=== PATIENT | female | born 1945 | race Caucasian/White ===

== ENCOUNTER 2017-05-19 18:49 | Observation (INO) ==
--- NOTE | 2017-05-19 19:38 | Emergency Department Note ---
Disposition Clinical Impression: Chest pain Qualifiers: Chest pain type: unspecified Qualified Code(s): R07.9 - Chest pain, unspecified Disposition: Admitted As Inpatient Condition: Undetermined Referrals: Belinda Bey MD [Primary Care Provider] - Forms: ED Satisfaction Letter Time of Disposition: 20:36 Chest Pain HPI - General Chief Complaint: ED Chest Pain Stated Complaint: chest pain Time Seen by Provider: 05/19/17 18:57 Source: patient Mode of arrival: ambulatory Limitations: no limitations Vital Signs Reviewed: Yes Nursing Notes Reviewed: Yes - History of Present Illness HPI Narrative: 71-year-old female with history of [place] 4 stents arrive to [facility] emergency department complaining of left-sided chest discomfort was very sharp and stabbing in nature that radiated to her left upper extremity. The patient states this feels slightly different than her previous [place] but is very concerned. Patient denies any other complaints at this time. She felt like she had some shortness of breath and some nausea with it. She denies any other complaints other than a radiated to her left upper extremity and the left side of her neck. She is resting comfortably at this time but is still complaining of the left shoulder pain. The patient denies any unilateral leg swelling, history of DVT or PE, recent surgeries, recent immobilizations, hemoptysis. Pt complaint: chest pain Onset (ago): Just [employer] Duration: intermittent, now resolved Onset: during rest Pain Location: substernal, left chest Severity: moderate, severe Severity scale (1-10): 8 Quality: tightness, heaviness, sharp Pain Radiation: LUE, neck Improves with: nothing Worsens with: nothing Associated symptoms: Reports: nausea, dyspnea Treatments prior to arrival chest pain: none - Related Data On Oral Contraceptives: No Home Medications Medication Instructions Recorded Confirmed Aspirin [Lo-Dose Aspirin EC] 81 mg PO DAILY 02/05/16 02/05/16 Atorvastatin [Lipitor] 40 mg PO HS 02/05/16 02/05/16 Clopidogrel [Plavix] 75 mg PO DAILY 02/05/16 02/05/16 Insulin Glargine [Lantus] 60 unit SQ HS 02/05/16 02/05/16 Levothyroxine [Synthroid] 50 mcg PO 0630 02/05/16 02/05/16 Metoprolol XL (24 HR) Succ [Toprol 25 mg PO DAILY 02/05/16 02/05/16 Xl] Nitroglycerin [Nitrostat] 0.4 mg SL Q5M PRN 02/05/16 02/05/16 hydroCHLOROthiazide 25 mg PO DAILY 02/05/16 02/05/16 [Hydrochlorothiazide] Humalog 09/23/16 Metformin 09/23/16 Previous Rx's Medication Instructions Recorded Acetaminophen [Tylenol] 325 mg PO Q6HR PRN #10 tablet 09/23/16 Benzonatate [Tessalon] 200 mg PO TID PRN #20 capsule 09/23/16 Fluticasone Propionate Nasal 2 spray NS DAILY #1 bottle 09/23/16 [Flonase] Allergies Allergy/AdvReac Type Severity Reaction Status Date / Time Amoxicillin [From Amoxil] Allergy Swelling Verified 03/23/15 13:17 of Lip/Tongue/Throat Penicillins Allergy Swelling Verified 09/23/16 13:33 of Lip/Tongue/Throat All systems ED: reviewed and negative except as stated. Constitutional: Denies: fever, chills, weakness Cardiovascular: Reports: chest pain. Denies: palpitations, dyspnea on exertion , edema, syncope Respiratory: Reports: dyspnea. Denies: cough, wheezes, hemoptysis Gastrointestinal: Reports: nausea. Denies: abdominal pain, vomiting Musculoskeletal: Denies: back pain Neurological: Denies: headache, weakness, numbness, confusion, abnormal gait, vertigo Chest Pain PMH - Past Medical History Medical history: Reports: diabetes, hyperlipidemia, hypertension, myocardial infarction Surgical history: Reports: non-contributory Psychiatric history: Reports: no psych history Prior Cardiac Testing/Procedures: Stenting (X4) [employer] MEMBER history: Reports: non-contributory - Social History Smoking Status: Never smoker Alcohol use: Reports: none Drug use: Reports: none Physical Exam - General Limitations: no limitations General appearance: alert, in no apparent distress - Head Head exam: atraumatic, normocephalic, normal inspection - Eye Eye exam: Present: normal appearance, PERRL, EOMI - ENT ENT exam: normal exam, normal oropharynx, mucous membranes moist - Neck Neck exam: Present: normal inspection, full ROM, trachea midline - Chest Chest inspection: Present: normal inspection, symmetric chest wall rise - Respiratory Respiratory exam: Present: normal lung sounds bilaterally - Cardiovascular Cardiovascular exam: Present: regular rate, normal rhythm, normal heart sounds - Abdominal Exam Abdominal exam: Present: soft, Non-Tender. Absent: tenderness, distention, guarding, rebound, rigidity - Extremities Exam Extremities exam: Present: normal inspection, full ROM. Absent: tenderness, pedal edema - Neurological Exam Neurological exam: Present: alert, oriented X3 Course Vital Signs Temperature 97.9 F 05/19/17 18:52 Pulse Rate 88 05/19/17 18:52 Respiratory Rate 18 05/19/17 18:52 Blood Pressure 227/109 05/19/17 18:52 O2 Sat by Pulse Oximetry 97 05/19/17 18:52 Temperature 97.9 F 05/19/17 18:52 Pulse Rate 101 05/19/17 20:29 Respiratory Rate 16 05/19/17 20:29 Blood Pressure 180/118 05/19/17 20:29 O2 Sat by Pulse Oximetry 94 05/19/17 20:29 Oxygen Delivery Oxygen Delivery Room Air Chest Pain - MDM Narrative Medical decision making narrative: Patient's workup here in the emergency department demonstrates no acute process. Given the patient's previous history of [place] and symptoms occurring just prior to arrival, we will admit the patient to the hospitalist, accepted by Dr. Chery. Patient resting comfortably at this time receiving nitroglycerin and systolic blood pressure dropping into the 170s. - Medical Records Medical records reviewed: Yes I reviewed the patient's medical records. - Lab Data Lab results reviewed: Yes I reviewed the patient's lab results. Result diagrams: 05/19/17 19:16 05/19/17 19:16 Lab Results 05/19/17 05/19/17 05/19/17 Range/Units 19:16 19:16 19:16 WBC 7.9 (4.3-11.1) K/mcL RBC 4.88 (3.82-4.97) M/mcL Hgb 13.8 (11.5-15.4) g/dL Hct 42.9 (35.3-44.9) % MCV 87.9 (83.0-100.0) fL MCH 28.3 (28.0-33.3) pg MCHC 32.2 (31.6-35.5) g/dL RDW 13.5 (11.5-14.5) % Plt Count 236 (140-400) K/mcL MPV 11.4 (9.4-12.4) fL Immature Gran % 0.3 (0-4) % Seg Neutrophils % 64.1 % Lymphocytes % 23.1 % Monocytes % 8.8 % Eosinophils % 3.2 % Basophils % 0.5 % Neutrophils # 5.1 (1.6-8.9) K/mcL Lymphocytes # 1.8 (0.6-4.6) K/mcL Monocytes # 0.7 (0.0-1.3) K/mcL Eosinophils # 0.3 (0.0-0.6) K/mcL Basophils # 0.0 (0.0-0.2) K/mcL Sodium 141 (136-145) mEq/L Potassium 3.8 (3.5-4.5) mEq/L Chloride 104 (98-109) mEq/L Carbon Dioxide 25 (19-29) mEq/L BUN 26 H (7-20) mg/dL Creatinine 1.26 H (0.57-1.11) mg/dL Est GFR ( Amer) 50 L (> 60) Est GFR (Non-Af Amer) 42 L (> 60) BUN/Creatinine Ratio 21 (6-26) Glucose 114 H (70-99) mg/dL Calculated Osmolality 298 (280-300) Calcium 10.4 (8.6-10.8) mg/dL Troponin I 0.00 (0-0.03) ng/mL - Radiology Data Radiology results reviewed: Yes I reviewed the patient's radiology results. - EKG Data EKG attestation: Yes I reviewed and interpreted this EKG. EKG results narrative: Heart rate 84 bpm. NC interval 159 ms. QTC 377 ms. Normal sinus rhythm. No ST elevation or ST depression noted.
[2017-05-19] MEDS ORDERED: Aspirin 325 MG TABLET PO ONE (19:39)
[2017-05-19] MEDS ORDERED: Nitroglycerin 0.4 MG TAB.SUBL SL PRN (19:39)
[2017-05-19 19:49] LABS: Basophils % 0.5 %; Eosinophils # 0.3 K/mcL (0.0-0.6); Eosinophils % 3.2 %; Hematocrit 42.9 % (35.3-44.9); Hemoglobin 13.8 g/dL (11.5-15.4); Immature Granulocytes % 0.3 % (0-4); Lymphocytes # 1.8 K/mcL (0.6-4.6); Lymphocytes % 23.1 %; Mean Corpuscular HGB Conc 32.2 g/dL (31.6-35.5); Mean Corpuscular Hemoglobin 28.3 pg (28.0-33.3); Mean Corpuscular Volume 87.9 fL (83.0-100.0); Mean Platelet Volume 11.4 fL (9.4-12.4); Monocytes # 0.7 K/mcL (0.0-1.3); Monocytes % 8.8 %; Neutrophils # 5.1 K/mcL (1.6-8.9); Platelet Count 236 K/mcL (140-400); Red Blood Count 4.88 M/mcL (3.82-4.97); Red Cell Distribution Width 13.5 % (11.5-14.5); Segmented Neutrophils % 64.1 %
--- NOTE | 2017-05-19 19:52 | Emergency Department Note ---
START Narrative - START START: I examined this patient and my medical decision-making was reviewed with the Resident Physician. I agree with the documented findings, disposition and treatment plan as described except to the extent set forth below. 71 -year-old female with a history of 4 stents presents to the ER with left arm discomfort. She was not sure if it was her heart or not. She follows with cardiology here. She saw her net c developer 2 days ago who put her on a new blood pressure medication. She states she had her blood pressure checked tonight and it was elevated prior to coming to the ER. She has not had any heart catheterization in over 3 years since her last stent was placed. EKG was unremarkable.
[2017-05-19 20:01] LABS: Calcium 10.4 mg/dL (8.6-10.8); Potassium 3.8 mEq/L (3.5-4.5)
--- NOTE | 2017-05-19 21:40 | Internal Med History&Physical ---
Date of Encounter: 05/19/17 Time of Encounter: 21:38 Assessment and Plan (1) Hypertensive urgency Current visit: Yes Status: Acute *The patient for nitro drip since she still hypertensive. (2) Unstable angina Current visit: Yes Status: Acute Start the patient to nitro drip. continue aspirin Plavix beta leatha. Serial cardiac markers. Cardiology evaluation (3) Diabetes mellitus type 2 in obese Current visit: No Status: Acute Continue home regimen in addition to sliding scale insulin. Check hemoglobin A- 1 C in the morning Internal Medicine - H&P: HPI Chief complaint: chest pain History of present illness: Ms. Grimm is a 71 year old female who presents to the emergency room today with a main component of chest pain. By the patient was going to [employer] today and driving her car she started experiencing retrosternal and left in from memory chest pain. This pain lasted for a short period 2nd 2 minutes and resolve spontaneously. Patient did not have to pull off and continued driving. Patient had a 2nd similar episode of pain. Patient was found to be hypertensive and are able to emergency room with systolic blood pressure in the 180s. Patient was often during my interview. Patient has no history of coronary artery disease and had stents placed 3 1/2 years ago. Past Med Surg Social Fam HX - Past Medical History Medical history: diabetes, hyperlipidemia, hypertension, myocardial infarction Psychiatric history: no psych history - Past Surgical History Surgical History: non-contributory - Social History Smoking Status: Never smoker Smokeless Tobacco Status: No Alcohol use: none Drug use: none - Family History Mother Living Status: Hx Family Cardiac Disorders: Yes Hx Family Respiratory Disorders: No Hx Family Cancer: Yes Hx Family GI Disorders: No Hx Family Endocrine Disorder: Yes Hx Family Neuromuscular Disorders: No Hx Family Neurologic Disorders: No Hx Family HEENT Disorders: No Hx Family Autoimmune Disorders: No Father Living Status: Hx Family Cardiac Disorders: No Hx Family Respiratory Disorders: No Hx Family Cancer: No Hx Family GI Disorders: No Hx Family Endocrine Disorder: No Hx Family Neuromuscular Disorders: Yes Hx Family Neurologic Disorders: No Hx Family HEENT Disorders: No Hx Family Autoimmune Disorders: No Internal Medicine - H&P: Meds Aspirin [Lo-Dose Aspirin EC] 81 mg PO DAILY 02/05/16 [History] Atorvastatin [Lipitor] 40 mg PO HS 02/05/16 [History] Clopidogrel [Plavix] 75 mg PO DAILY 02/05/16 [History] Insulin Glargine [Lantus] 55 unit SQ HS 02/05/16 [History] Levothyroxine [Synthroid] 50 mcg PO 0630 02/05/16 [History] Metoprolol XL (24 HR) Succ [Toprol Xl] 25 mg PO DAILY 02/05/16 [History] hydroCHLOROthiazide [Hydrochlorothiazide] 25 mg PO DAILY 02/05/16 [History] Insulin NPH Hum/Reg Insulin Hm [Novolin 70-30 100 Unit/ml Vial] 15 unit SQ BID 09/23/16 [History] Metformin HCl [Glucophage Xr] 750 mg PO BID 09/23/16 [History] Amlodipine Besylate [Amlodipine Besylate] 2.5 mg PO DAILY 05/19/17 [History] Potassium Chloride [Klor-Con 10] 20 meq PO DAILY 05/19/17 [History] 3 Allergy/AdvReac Type Severity Reaction Status Date / Time Amoxicillin [From Amoxil] Allergy Swelling Verified 03/23/15 13:17 of Lip/Tongue/Throat Penicillins Allergy Swelling Verified 09/23/16 13:33 of Lip/Tongue/Throat All Systems PM: A 10-system review of systems was performed and is negative for pertinent findings except as documented above in the HPI. Review of systems: 10 point review of systems is negative except for HPI - Constitutional Vitals: Temp Pulse Resp BP Pulse Ox 98 F 101 16 172/88 94 05/19/17 20:55 05/19/17 20:29 05/19/17 20:55 05/19/17 20:55 05/19/17 20:29 Exam: Gen.: patient is alert oriented times 3 not in distress cardiac: Normal S1, S2, no additional sounds or murmurs chest: Clear to auscultation Abdomen: Soft, non tender. No rebound lower extremity Lax calf muscles no swelling Neuro: no focal deficits Internal Med - H&P Results - Labs CBC & Chem 7: 05/19/17 19:16 05/19/17 19:16
[2017-05-19] MEDS ORDERED: Nitroglycerin 25 MG/250 ML INFUS..BTL IVC SCH (21:45)
[2017-05-19] MEDS ORDERED: Dextrose Gel 15 GM PO PRN ×2 (21:52)
[2017-05-19] MEDS ORDERED: D5% in Water 1,000 ML IVC PRN (21:52)
[2017-05-19] MEDS ORDERED: *HR* Dextrose 50 % in Water (Syg) 50 ML SYRINGE IVP PRN (21:52)
[2017-05-20] MEDS: *HR* Heparin 5,000 UNIT/ML VIAL SQ SCH ×4 (00:36→22:10)
[2017-05-20 01:40] LABS: Basophils % 0.6 %; Eosinophils # 0.2 K/mcL (0.0-0.6); Eosinophils % 3.1 %; Hematocrit 38.5 % (35.3-44.9); Hemoglobin 12.5 g/dL (11.5-15.4); Immature Granulocytes % 0.3 % (0-4); Lymphocytes # 1.4 K/mcL (0.6-4.6); Lymphocytes % 20.4 %; Mean Corpuscular HGB Conc 32.5 g/dL (31.6-35.5); Mean Corpuscular Hemoglobin 28.7 pg (28.0-33.3); Mean Corpuscular Volume 88.5 fL (83.0-100.0); Mean Platelet Volume 11.5 fL (9.4-12.4); Monocytes # 0.7 K/mcL (0.0-1.3); Monocytes % 9.8 %; Neutrophils # 4.5 K/mcL (1.6-8.9); Platelet Count 205 K/mcL (140-400); Red Blood Count 4.35 M/mcL (3.82-4.97); Red Cell Distribution Width 13.4 % (11.5-14.5); Segmented Neutrophils % 65.8 %
[2017-05-20 01:53] LABS: Calcium 9.6 mg/dL (8.6-10.8); Magnesium 1.5 mg/dL (1.6-2.6); Potassium 3.7 mEq/L (3.5-4.5)
[2017-05-20] MEDS: Insulin LISPRO 300 UNITS/3 ML VIAL SQ SCH ×4 (01:56→17:25)
[2017-05-20] MEDS: Insulin DETEMIR 100 UNIT/ML X5UNITS SQ SCH ×2 (01:57→22:09)
[2017-05-20 01:58] LABS: Hemoglobin A1C 7.3 %
[2017-05-20] MEDS: Metoprolol XL (24 HR) Succ 25 MG TAB.ER.24H PO SCH (10:10)
[2017-05-20] MEDS: Aspirin Enteric Coated 81 MG Tablet PO SCH (10:11)
[2017-05-20] MEDS: hydroCHLOROthiazide 25 MG TABLET PO SCH (10:11)
--- NOTE | 2017-05-20 17:02 | Electrocardiograph Report ---
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
--- NOTE | 2017-05-20 18:46 | Internal Med Progress Note ---
Date of Encounter: 05/20/17 Time of Encounter: 10:30 - Assessment and plan (1) Chest pain Current Visit: Yes Status: Acute Assessment and plan: Patient presents with sudden onset left midsternal chest pain, she she describes a sharp, intermittent with radiation into her left shoulder blade, she also describes in her left arm felt heavy. The chest pain resolved prior to the back pain. Patient was found to be hypertensive on admission to the emergency department. Pain is not reproducible. Patient has been pain-free. Physical exam unremarkable. Prior history of coronary artery disease with 4 stents. We will continue the beta leatha, aspirin, Plavix. Patient was to have stress test this morning, however, she drank coffee and was unaware that she was supposed to be nothing by mouth. Stress test will start tomorrow. Echocardiogram ordered and pending, as well. Last echocardiogram was in 2014. Chest x-ray is negative for any acute process. EKG sinus rhythm with rate of 84 , OR interval 185, QRS 75, QTC 377. Continue associate vital signs Continue aspirin, statin, beta leatha, Plavix Stress test in the morning Consider cardiology consult based on results of stress test. Qualifiers: Chest pain type: unspecified Qualified Code(s): R07.9 - Chest pain, unspecified (2) CKD (chronic kidney disease) stage 3, GFR 30-59 ml/min Current Visit: Yes Status: Acute Assessment and plan: The patient states that she has been unaware of any renal disease. She states that she was having back pain and orthopedic physician discovered that she had an enlarged kidney. She states that her retroperitoneal ultrasound was ordered and she has never heard the results. The test was performed on 05/14/2017. There is no definite sonographic evidence of hydronephrosis, there is a slight increase in size of right parapelvic cyst, there are no suspicious features. There is normal bladder noted. Since GFR appears to have been decreased since May,. She has not had a normal reading since then. Patient will follow with primary care after discharge. Avoid nephrotoxins and NSAIDs. (3) HTN (hypertension) Current Visit: Yes Status: Chronic Assessment and plan: Blood pressures well controlled in inpatient setting. Continue home medications. Continue to monitor vital signs. Qualifiers: Hypertension type: essential hypertension Qualified Code(s): I10 - Essential (primary) hypertension (4) CAD (coronary artery disease) Current Visit: Yes Status: Chronic Assessment and plan: Prior history of coronary artery disease with stent placement. Continue telemetry and continue Lipitor, Plavix, beta leatha, aspirin. Qualifiers: Coronary Disease-Associated Artery/Lesion type: [place] artery [place] vs. transplanted heart: [place] heart Associated angina: without angina Qualified Code(s): I25.10 - Atherosclerotic heart disease of [place] coronary artery without angina pectoris (5) Diabetes mellitus type 2 in obese Current Visit: Yes Status: Acute (6) Hypertensive urgency Current Visit: Yes Status: Acute Assessment and plan: Continue to monitor. Blood pressure is well controlled at this time. - Time Spent With Patient less than 15 minutes - Subjective Interval history: Patient was seen and assessed at 10:30 AM. Patient reports sharp, left and midsternal chest pain, described as intermittent, onset while she was [place]. She reports that the pain radiated into her left shoulder blade and that her left arm felt heavy. Patient states that the chest pain resolved, however when she arrived at the emergency department, she states, "I still had misery in my back." Patient denies any chest or back pain at this time. She also reports no knowledge of having chronic kidney disease. She reports that she did have a retroperitoneal ultrasound here recently and is unsure of the results. - Constitutional Vitals: Temp Pulse Resp BP Pulse Ox 97.4 F L 83 16 178/81 94 05/20/17 18:34 05/20/17 18:34 05/20/17 18:34 05/20/17 18:34 05/20/17 18:34 General appearance: Present: cooperative, A&O X 3, pleasant, answers questions appropriately - Head Head exam: Present: atraumatic, normal inspection, normocephalic - Eye Eye exam: Present: normal appearance, conjuntiva pink, sclera anicteric - Neck Neck exam general surgery: Present: normal inspection, supple, trachea midline - Respiratory Respiratory exam: Present: CTAB. Absent: accessory muscle use, decreased breath sounds, rales, respiratory distress, rhonchi, wheezes - Cardiovascular Cardiovascular exam: Present: RRR, +S1, +S2. Absent: diastolic murmur, gallop, rubs, systolic murmur - GI/Abdominal GI/Abdominal exam: Present: normal bowel sounds, soft, no peritoneal signs. Absent: distended, hepatomegaly, tenderness - Extremities Exam Extremities exam: Present: normal inspection, warm, radial pulses palpable and symmetrical. Absent: calf tenderness, cyanotic, normal capillary refill, pedal edema, tenderness - Neurological Exam Neurological exam: Present: alert, oriented X3, no focal deficits. Absent: facial droop, speech deficit - Skin Skin exam: Present: dry, intact, normal color, warm. Absent: rash Internal Medicine: Result - Labs CBC & Chem 7: 05/20/17 01:21 05/20/17 01:21 Labs: Short CBC 05/20/17 Range/Units 01:21 WBC 6.9 (4.3-11.1) K/mcL Hgb 12.5 (11.5-15.4) g/dL Hct 38.5 (35.3-44.9) % Plt Count 205 (140-400) K/mcL Neutrophils # 4.5 (1.6-8.9) K/mcL BMP 05/20/17 01:21 Sodium 141 Potassium 3.7 Chloride 105 Carbon Dioxide 24 BUN 25 H Creatinine 1.31 H Glucose 168 H Calcium 9.6 Cardiac Enzymes 05/20/17 05/20/17 Range/Units 01:21 06:56 Troponin I 0.00 0.00 (0-0.03) ng/mL Consult Discharge Plan - Plan Referrals: Belinda Bey MD [Primary Care Provider] - 05/28/17 1:45 pm
[2017-05-20] MEDS ORDERED: 0.9 % Sodium Chloride 1,000 ML IVC SCH (19:00)
[2017-05-21] MEDS: Insulin LISPRO 300 UNITS/3 ML VIAL SQ SCH ×4 (01:17→15:23)
[2017-05-21] MEDS ORDERED: Regadenoson 0.4 MG/5 ML SYRINGE IVP ONE (05:58)
[2017-05-21] MEDS: *HR* Heparin 5,000 UNIT/ML VIAL SQ SCH ×2 (10:12→15:24)
[2017-05-21] MEDS: Aspirin Enteric Coated 81 MG Tablet PO SCH (10:19)
[2017-05-21] MEDS: hydroCHLOROthiazide 25 MG TABLET PO SCH (10:20)
[2017-05-21] MEDS: Metoprolol XL (24 HR) Succ 25 MG TAB.ER.24H PO SCH (10:20)
--- NOTE | 2017-05-21 14:16 | Discharge Summary ---
Date of Encounter: 05/21/17 Time of Encounter: 11:00 - Discharge Diagnosis (1) Chest pain Priority: Primary Status: Acute Comments: Patient presents with sudden onset left midsternal chest pain while she was driving to [employer]. She describes a sharp, intermittent with radiation into her left shoulder blade, she also describes in her left arm felt heavy. The chest pain resolved prior to the back pain. Patient was found to be hypertensive on admission to the emergency department. Pain is not reproducible. Patient has been pain-free. Physical exam unremarkable. Prior history of coronary artery disease with 4 stents. Patient was to have stress test mornin after admission, however, she drank coffee and was unaware that she was supposed to be nothing by mouth. Stress test completed and was negative, gated EF > 70%. Echocardiogram with an EF of 60-65%, mild LV DD, no significant valvular dysfunction. Chest x-ray is negative for any acute process. EKG sinus rhythm with rate of 84 , [place] interval 185, QRS 75, QTC 377. Unclear etiology of chest pain at this time. She denies any reflux symptoms, belching, nausea or vomiting. The chest pain is not reproducible. She has not had any chest pain at all since this episode. Continue aspirin, statin, beta leatha, Plavix, and follow-up with cardiology. Qualifiers: Chest pain type: unspecified Qualified Code(s): R07.9 - Chest pain, unspecified (2) CKD (chronic kidney disease) stage 3, GFR 30-59 ml/min Priority: Secondary Status: Acute Comments: The patient states that she has been unaware of any renal disease. She states that she was having back pain and orthopedic physician discovered that she had an enlarged kidney. She states that her retroperitoneal ultrasound was ordered and she has never heard the results. The test was performed on 05/14/2017. There is no definite sonographic evidence of hydronephrosis, there is a slight increase in size of right parapelvic cyst, there are no suspicious features. There is a normal bladder noted. GFR appears to have been decreased since May,. She has not had a normal reading since then. Patient will follow with primary care after discharge. Avoid nephrotoxins and NSAIDs. Serum creatinine and GFR appear to be at patient's baseline. She received IV fluids overnight and values improved. (3) HTN (hypertension) Priority: Secondary Status: Chronic Comments: Blood pressures have been about goal blood pressures. She reports that she was placed on amlodipine 2.5 mg by mouth daily by cardiology. She said she did not feel comfortable taking that since it was not prescribed by her primary care physician. She says that it made her feel a little bit lightheaded and she stopped taking it after one dose. Encouraged patient to restart it at home and discuss with primary care. We discussed the damaged to her kidneys from long- term hypertension. She was agreeable. She is not on Lasix or an TEO inhibitor. She will continue normal home medications, continue monitoring blood pressure at home, and discuss with primary care Qualifiers: Hypertension type: essential hypertension Qualified Code(s): I10 - Essential (primary) hypertension (4) CAD (coronary artery disease) Priority: Secondary Status: Chronic Comments: Patient has prior history of coronary artery disease with stent placement. Continue Lipitor, Plavix, beta leatha, and aspirin. Qualifiers: Coronary Disease-Associated Artery/Lesion type: [place] artery [place] vs. transplanted heart: [place] heart Associated angina: without angina Qualified Code(s): I25.10 - Atherosclerotic heart disease of [place] coronary artery without angina pectoris (5) Diabetes mellitus type 2 in obese Priority: Secondary Status: Chronic Comments: A1c 7.3. Continue home medications and Accu-Chek schedule per normal home regimen. (6) Hypertensive urgency Priority: Secondary Status: Acute Comments: Pressure has returned to baseline. Patient will continue her normal home medications. Plan as above - Discharge Medications Home Medications: Aspirin [Lo-Dose Aspirin EC] 81 mg PO DAILY 02/05/16 [History] Atorvastatin [Lipitor] 40 mg PO HS 02/05/16 [History] Clopidogrel [Plavix] 75 mg PO DAILY 02/05/16 [History] Insulin Glargine [Lantus] 55 unit SQ HS 02/05/16 [History] Levothyroxine [Synthroid] 50 mcg PO 0630 02/05/16 [History] Metoprolol XL (24 HR) Succ [Toprol Xl] 25 mg PO DAILY 02/05/16 [History] hydroCHLOROthiazide [Hydrochlorothiazide] 25 mg PO DAILY 02/05/16 [History] Insulin NPH Hum/Reg Insulin Hm [Novolin 70-30 100 Unit/ml Vial] 15 unit SQ BID 09/23/16 [History] Metformin HCl [Glucophage Xr] 750 mg PO BID 09/23/16 [History] Amlodipine Besylate 2.5 mg PO DAILY 05/19/17 [History] Potassium Chloride [Klor-Con 10] 20 meq PO DAILY 05/19/17 [History] Allergies/Adverse Reactions: 3 Allergy/AdvReac Type Severity Reaction Status Date / Time Amoxicillin [From Amoxil] Allergy Swelling Verified 03/23/15 13:17 of Lip/Tongue/Throat Penicillins Allergy Swelling Verified 09/23/16 13:33 of Lip/Tongue/Throat Procedures/tests Complete & Pending: Procedures Performed prior 72 hours Category Date Time Status NM mohini perf SPECT multi [NM] Routine Exams 05/21/17 06:25 Taken EV echocardiogram Routine Y 05/21/17 18:51 Completed SP pharm nuclear stress Routine Y 05/21/17 07:00 Completed Date of admission: 05/19/17 20:46 Primary care physician: Belinda Bey Discharging clinician: Wendy Bush Anticipated date of discharge: 05/21/17 - Patient Status Disposition: Home, Self-Care Condition: Good Functional capacity at discharge: independent ambulation Overall status at discharge: patient is back to baseline - Discharge Instructions Follow Up With: Belinda Bey MD [Primary Care Provider] - 05/28/17 1:45 pm Additional Instructions: Follow up with your doctor in the next 7-10 days for a follow up visit. Return to the ER as needed for any other problems or concerns. Resume your home medications. Resume your normal activities. - Diet and Activity Activity: increase activity as tolerated Diet: diabetic diet, low fat, low cholesterol Hospital course: Pt is a non-smoker. She reports that pna and flu vaccines are UTD. Please see assessment and plan for hospital course. - Time Spent with Patient Total time spent providing and/or coordinating discharge services: Less than 30 minutes - Constitutional Vitals: Temp Pulse Resp BP Pulse Ox 98 F 85 16 155/79 94 05/21/17 10:35 05/21/17 10:35 05/21/17 10:35 05/21/17 10:35 05/21/17 10:35 General appearance: Present: cooperative, A&O X 3, pleasant, no acute distress, answers questions appropriately - Head Head exam: Present: atraumatic, normal inspection, normocephalic - Eye Eye exam: Present: normal appearance, conjuntiva pink, sclera anicteric - Neck Neck exam general surgery: Present: normal inspection, supple, trachea midline - Respiratory Respiratory exam: Present: CTAB. Absent: accessory muscle use, chest wall tenderness, decreased breath sounds, rales, respiratory distress, rhonchi, wheezes - Cardiovascular Cardiovascular exam: Present: RRR, +S1, +S2. Absent: diastolic murmur, gallop, rubs, systolic murmur - GI/Abdominal GI/Abdominal exam: Present: normal bowel sounds, soft. Absent: distended, hepatomegaly, tenderness - Extremities Exam Extremities exam: Present: warm, radial pulses palpable and symmetrical. Absent : calf tenderness, cyanotic, normal capillary refill, normal inspection, pedal edema - Neurological Exam Neurological exam: Present: alert, oriented X3, no focal deficits. Absent: facial droop, speech deficit - Skin Skin exam: Present: dry, intact, normal color, warm. Absent: rash
[2017-05-21 15:08] VITALS: BP 128/82
[2017-05-23 15:52] LABS: CK-BB (CK isoenzymes) 0 % (0-0); CK-MB (CK isoenzymes) 0 % (0-4); CK-MM (CK-isoenzymes) 100 % (96-100)
[2017-05-23 15:52] LABS: CK-BB (CK isoenzymes) 0 % (0-0); CK-MB (CK isoenzymes) 0 % (0-4); CK-MM (CK-isoenzymes) 100 % (96-100)
[2017-05-24 10:06] LABS: CK Total (Ck Isoenzymes) 111 U/L (20-180)
[2017-05-24 10:06] LABS: CK Total (Ck Isoenzymes) 108 U/L (20-180)
== END 2017-05-21 19:00 | disposition home or self-care (01) ==
LOC: 3BNU 18:49 → EMEROO 18:49 → 3BNU 21:52
PROVIDERS: ADMIT Hospitalist; ATTEND Registered Nurse

== ENCOUNTER 2017-11-08 20:56 | Observation (INO) ==
[2017-11-08] MEDS ORDERED: Aspirin 325 MG TABLET PO ONE (21:26)
[2017-11-08] MEDS ORDERED: Nitroglycerin 0.4 MG TAB.SUBL SL PRN (21:26)
--- NOTE | 2017-11-08 21:32 | Emergency Department Note ---
Disposition Clinical Impression: Chest pain Disposition: Admitted As Inpatient Condition: Fair Referrals: Belinda Bey MD [Primary Care Provider] - Forms: ED Satisfaction Letter Time of Disposition: 22:46 General Adult HPI - General Chief complaint: ED Chest Pain Stated complaint: chest pain Time Seen by Provider: 11/08/17 21:18 Source: patient Limitations: no limitations Nursing Notes Reviewed: Yes Vital Signs Reviewed: Yes - History of Present Illness HPI Narrative: Patient presents to the ED with a chief complaint of chest pressure. Patient has substernal chest pressure that started 2 hours prior to arrival. Nonradiating. No nausea vomiting or diaphoresis. Patient states she has a history of 4 stents the last of which was placed about 3 or 4 years ago. She has not had a heart catheterization since then. No abdominal pain no diarrhea. Normal bowel movements. No fever. She has had some dyspnea for a while. Pain Scale: 4 - Related Data Home Medications Medication Instructions Recorded Confirmed Aspirin [Lo-Dose Aspirin EC] 81 mg PO DAILY 02/05/16 11/08/17 Atorvastatin [Lipitor] 40 mg PO HS 02/05/16 11/08/17 Clopidogrel [Plavix] 75 mg PO DAILY 02/05/16 11/08/17 Insulin Glargine [Lantus] 40 unit SQ HS 02/05/16 11/08/17 Levothyroxine [Synthroid] 50 mcg PO 0602/05/16 11/08/17 Metoprolol XL (24 HR) Succ [Toprol 25 mg PO DAILY 02/05/16 11/08/17 Xl] hydroCHLOROthiazide 25 mg PO DAILY 02/05/16 11/08/17 [Hydrochlorothiazide] Insulin NPH Hum/Reg Insulin Hm 15 unit SQ BID 09/23/16 11/08/17 [Novolin 70-30 100 Unit/ml Vial] Metformin HCl [Glucophage Xr] 750 mg PO BID 09/23/16 11/08/17 Potassium Chloride [Klor-Con 10] 20 meq PO DAILY 05/19/17 11/08/17 Calcium Carbonate [Calcium] 500 mg PO DAILY 10/26/17 11/08/17 Cholecalciferol (D-3) [Vitamin D] 1,000 unit PO DAILY 10/26/17 11/08/17 Multivitamin [One Daily 1 tab PO DAILY 10/26/17 11/08/17 Multivitamin] Clarithromycin [Clarithromycin] 250 mg PO BID 11/08/17 11/08/17 metroNIDAZOLE [Flagyl] 500 mg PO BID 11/08/17 11/08/17 Allergies Allergy/AdvReac Type Severity Reaction Status Date / Time Amoxicillin [From Amoxil] Allergy Swelling Verified 11/08/17 22:38 of Lip/Tongue/Throat Penicillins Allergy Swelling Verified 11/08/17 22:38 of Lip/Tongue/Throat All systems ED: reviewed and negative except as stated. Constitutional: Denies: fever Cardiovascular: Reports: chest pain, dyspnea on exertion. Denies: palpitations , orthopnea, syncope Respiratory: Reports: dyspnea. Denies: wheezes, stridor Gastrointestinal: Denies: abdominal pain, nausea, vomiting, diarrhea, constipation Past Medical History - Past Medical History Attestation: Yes The following information was validated with the patient. Source: patient Medical history: Reports: arthritis, diabetes, GERD, hyperlipidemia, hypertension, myocardial infarction Surgical history: Reports: breast surgery Psychiatric history: Reports: no psych history [employer] history: Reports: non-contributory - Social History Smoking Status: Never smoker Smokeless Tobacco Status: No Alcohol use: Reports: none Drug use: Reports: none Physical Exam - General Limitations: no limitations General appearance: alert, in no apparent distress - Head Head exam: atraumatic, normocephalic - Eye Eye exam: Present: normal appearance - ENT ENT exam: normal exam - Chest Chest inspection: Present: normal inspection - Cardiovascular Cardiovascular exam: Present: regular rate, normal rhythm, normal heart sounds - Neurological Exam Neurological exam: Present: alert, oriented X3 - Psychiatric Psychiatric exam: Present: normal affect - Skin Skin exam: Present: warm, dry, intact Course Course Narrative: Patient in no distress. She is hypertensive. We will give aspirin and nitroglycerin. - Reevaluation(s) Reevaluation #1: Patient is pain-free after 1 nitroglycerin. Time: 22:02 Reevaluation #2: Patient is a heart score 6. We will admit. Time: 22:16 - Consultations Consultation #1: Dr Willem munguia Time: 22:45 Vital Signs Temperature 98.4 F 11/08/17 21:09 Pulse Rate 101 11/08/17 21:09 Respiratory Rate 20 11/08/17 21:09 Blood Pressure 120/78 11/08/17 21:09 O2 Sat by Pulse Oximetry 95 11/08/17 21:09 Temperature 98.4 F 11/08/17 21:09 Pulse Rate 88 11/08/17 22:32 Respiratory Rate 16 11/08/17 22:32 Blood Pressure 147/88 11/08/17 22:32 O2 Sat by Pulse Oximetry 96 11/08/17 22:32 Oxygen Delivery Oxygen Delivery Room Air Medical Decision Making - Lab Data Result diagrams: 11/08/17 21:34 11/08/17 21:34 Lab Results 11/08/17 11/08/17 11/08/17 Range/Units 21:34 21:34 21:34 WBC 7.2 (4.3-11.1) K/mcL RBC 4.84 (3.82-4.97) M/mcL Hgb 13.7 (11.5-15.4) g/dL Hct 42.5 (35.3-44.9) % MCV 87.8 (83.0-100.0) fL MCH 28.3 (28.0-33.3) pg MCHC 32.2 (31.6-35.5) g/dL RDW 13.4 (11.5-14.5) % Plt Count 235 (140-400) K/mcL MPV 11.6 (9.4-12.4) fL Immature Gran % 0.3 (0-4) % Seg Neutrophils % 60.6 % Lymphocytes % 23.5 % Monocytes % 11.7 % Eosinophils % 3.2 % Basophils % 0.7 % Neutrophils # 4.3 (1.6-8.9) K/mcL Lymphocytes # 1.7 (0.6-4.6) K/mcL Monocytes # 0.8 (0.0-1.3) K/mcL Eosinophils # 0.2 (0.0-0.6) K/mcL Basophils # 0.1 (0.0-0.2) K/mcL PT 10.1 (9.4-12.1) Seconds INR 0.9 APTT 32.9 (26.0-36.0) Seconds Sodium 141 (136-145) mEq/L Potassium 3.8 (3.5-5.1) mEq/L Chloride 106 (98-107) mEq/L Carbon Dioxide 25 (23-29) mEq/L BUN 20 (8-23) mg/dL Creatinine 1.16 (0.60-1.20) mg/dL Est GFR ( Amer) 55 L (> 60) Est GFR (Non-Af Amer) 46 L (> 60) BUN/Creatinine Ratio 17 (6-26) Glucose 239 H (70-105) mg/dL Calculated Osmolality 302 H (280-300) Calcium 9.7 (8.6-10.3) mg/dL Troponin I < 0.03 (< 0.04) ng/mL B-Natriuretic Peptide (Less than 100) pg/mL 11/08/17 Range/Units 21:34 WBC (4.3-11.1) K/mcL RBC (3.82-4.97) M/mcL Hgb (11.5-15.4) g/dL Hct (35.3-44.9) % MCV (83.0-100.0) fL MCH (28.0-33.3) pg MCHC (31.6-35.5) g/dL RDW (11.5-14.5) % Plt Count (140-400) K/mcL MPV (9.4-12.4) fL Immature Gran % (0-4) % Seg Neutrophils % % Lymphocytes % % Monocytes % % Eosinophils % % Basophils % % Neutrophils # (1.6-8.9) K/mcL Lymphocytes # (0.6-4.6) K/mcL Monocytes # (0.0-1.3) K/mcL Eosinophils # (0.0-0.6) K/mcL Basophils # (0.0-0.2) K/mcL PT (9.4-12.1) Seconds INR APTT (26.0-36.0) Seconds Sodium (136-145) mEq/L Potassium (3.5-5.1) mEq/L Chloride (98-107) mEq/L Carbon Dioxide (23-29) mEq/L BUN (8-23) mg/dL Creatinine (0.60-1.20) mg/dL Est GFR ( Amer) (> 60) Est GFR (Non-Af Amer) (> 60) BUN/Creatinine Ratio (6-26) Glucose (70-105) mg/dL Calculated Osmolality (280-300) Calcium (8.6-10.3) mg/dL Troponin I (< 0.04) ng/mL B-Natriuretic Peptide 13 (Less than 100) pg/mL - Radiology Data Radiology results reviewed: Yes I reviewed the patient's radiology results. Chest X-Ray 11/08/17 21:14 IMPRESSION: Clear lungs. D/ / Ammon Marshall MD / Ammon Marshall MD Interpreting Provider: Ammon Marshall MD - EKG Data EKG #1 EKG attestation: Yes I reviewed and interpreted this EKG. EKG results narrative: Normal sinus at 97. Anteroseptal ST depressions. Normal QRS. Normal axis. QT 348 with QTC 43. EKG unchanged from 05/19/2017. Heart Score - Score History: Moderately Suspicious EKG: Non Specific repolarisation Disturbance Age: Greater than 65 Risk Factors: Equal/Greater than 3 risk factor or history of atherosclerotic disease Troponin: Less than normal limit HEART Score Total: 6
[2017-11-08 21:46] LABS: Basophils # 0.1 K/mcL (0.0-0.2); Basophils % 0.7 %; Eosinophils # 0.2 K/mcL (0.0-0.6); Eosinophils % 3.2 %; Hematocrit 42.5 % (35.3-44.9); Hemoglobin 13.7 g/dL (11.5-15.4); Immature Granulocytes % 0.3 % (0-4); Lymphocytes # 1.7 K/mcL (0.6-4.6); Lymphocytes % 23.5 %; Mean Corpuscular HGB Conc 32.2 g/dL (31.6-35.5); Mean Corpuscular Hemoglobin 28.3 pg (28.0-33.3); Mean Corpuscular Volume 87.8 fL (83.0-100.0); Mean Platelet Volume 11.6 fL (9.4-12.4); Monocytes # 0.8 K/mcL (0.0-1.3); Monocytes % 11.7 %; Neutrophils # 4.3 K/mcL (1.6-8.9); Platelet Count 235 K/mcL (140-400); Red Blood Count 4.84 M/mcL (3.82-4.97); Red Cell Distribution Width 13.4 % (11.5-14.5); Segmented Neutrophils % 60.6 %
[2017-11-08 21:51] LABS: INR 0.9; Prothrombin Time 10.1 Seconds (9.4-12.1)
[2017-11-08 21:53] LABS: Activated Partial Thrombo Time 32.9 Seconds (26.0-36.0)
[2017-11-08] MEDS ORDERED: *HR* Labetalol 20 MG/4 ML SYRINGE IVP ONE (22:02)
[2017-11-08 22:07] LABS: BUN/Creatinine Ratio 17 (6-26); Blood Urea Nitrogen 20 mg/dL (8-23); Calcium 9.7 mg/dL (8.6-10.3); Carbon Dioxide 25 mEq/L (23-29); Chloride 106 mEq/L (98-107); Glucose 239 mg/dL (70-105); Osmolality,Calculated 302 (280-300); Potassium 3.8 mEq/L (3.5-5.1); Sodium 141 mEq/L (136-145); eGFR For African Americans 55 (> 60); eGFR For Non-African Americans 46 (> 60)
[2017-11-08 22:08] LABS: Troponin I < 0.03 ng/mL (< 0.04)
--- NOTE | 2017-11-09 04:28 | Internal Med History&Physical ---
<Latricia Jeffery H - Last Filed: 11/09/17 05:17> Date of Encounter: 11/09/17 Time of Encounter: 04:15 Internal Medicine - H&P: HPI Chief complaint: chest pain Admitted From: Emergency Dept Plans for Post Hospital Care: Home History of present illness: Ms. Grimm is a 72 year old female with past medical history of CAD, DM 2, HLD, HTN, and hypothyroidism who presented to [facility] on 2017 with chief complaints of chest pain. Ms. Grimm states she developed chest pain around 6 PM yesterday evening. She describes this pain as "misery" and achy. The chest pain was located in the midsternal region. She states it did not radiate. It was not exertional, nor was it associated with shortness of breath. She denies any nausea or vomiting. She presented to the ED an hour and half later. She states her chest pain was relieved with a nitroglycerin tablet. She states she has had intermittent chest pain over the past several years. She states her last left heart catheter was 4 years ago. She has 4 stents. She states the pain she felt when she had an TN felt like "gas bubbles. " During examination, patient is resting comfortably. She reports mild chest pain that she is uncertain if it is tender to palpation. She denies any recent trauma. She denies any shortness of breath, diaphoresis, nausea, or vomiting. She does report some diarrhea which she states she has had for the last week ever since undergoing an EGD on 10/26/2017 which demonstrated gastritis. She describes this as loose brown colored stool. She denies any dysuria or gross hematuria. She denies any recent fevers, chills, or night sweats. Past Med Surg Social Fam HX - Past Medical History Attestation: Yes The following information was validated with the patient. Source: patient, old records reviewed Medical history: arthritis, coronary artery disease, diabetes, GERD, hyperlipidemia, hypertension, myocardial infarction Psychiatric history: no psych history - Past Surgical History Surgical History: breast surgery - Social History Smoking Status: Never smoker Smokeless Tobacco Status: No Alcohol use: none Drug use: none - Family History Mother Living Status: Hx Family Cardiac Disorders: Yes (CHF, HTN) Hx Family Respiratory Disorders: No Hx Family Cancer: Yes (Colon Cancer) Hx Family GI Disorders: No Hx Family Endocrine Disorder: Yes (DM) Hx Family Neuromuscular Disorders: No Hx Family Neurologic Disorders: No Hx Family HEENT Disorders: No Hx Family Autoimmune Disorders: No Father Living Status: Hx Family Cardiac Disorders: No Hx Family Respiratory Disorders: No Hx Family Cancer: No Hx Family GI Disorders: No Hx Family Endocrine Disorder: No Hx Family Neuromuscular Disorders: Yes Hx Family Neurologic Disorders: No Hx Family HEENT Disorders: No Hx Family Autoimmune Disorders: No Internal Medicine - H&P: Meds Aspirin [Lo-Dose Aspirin EC] 81 mg PO DAILY 02/05/16 [History] Atorvastatin [Lipitor] 40 mg PO HS 02/05/16 [History] Clopidogrel [Plavix] 75 mg PO DAILY 02/05/16 [History] Insulin Glargine [Lantus] 40 unit SQ HS 02/05/16 [History] Levothyroxine [Synthroid] 50 mcg PO 0630 02/05/16 [History] Metoprolol XL (24 HR) Succ [Toprol Xl] 25 mg PO DAILY 02/05/16 [History] hydroCHLOROthiazide [Hydrochlorothiazide] 25 mg PO DAILY 02/05/16 [History] Insulin NPH Hum/Reg Insulin Hm [Novolin 70-30 100 Unit/ml Vial] 15 unit SQ BID 09/23/16 [History] Metformin HCl [Glucophage Xr] 750 mg PO BID 09/23/16 [History] Potassium Chloride [Klor-Con 10] 20 meq PO DAILY 05/19/17 [History] Calcium Carbonate [Calcium] 500 mg PO DAILY 10/26/17 [History] Cholecalciferol (D-3) [Vitamin D] 1,000 unit PO DAILY 10/26/17 [History] Multivitamin [One Daily Multivitamin] 1 tab PO DAILY 10/26/17 [History] Clarithromycin [Clarithromycin] 250 mg PO BID 11/08/17 [History] metroNIDAZOLE [Flagyl] 500 mg PO BID 11/08/17 [History] 3 Allergy/AdvReac Type Severity Reaction Status Date / Time Amoxicillin [From Amoxil] Allergy Swelling Verified 11/08/17 22:38 of Lip/Tongue/Throat Penicillins Allergy Swelling Verified 11/08/17 22:38 of Lip/Tongue/Throat All Systems PM: A 10-system review of systems was performed and is negative for pertinent findings except as documented above in the HPI. - Constitutional Constitutional: no chills, no fever(s), no weakness - EENT Eyes: no other visual disturbances Nose, mouth and throat: no nasal congestion, no nasal discharge - Cardiovascular Cardiovascular ROS IM: chest pain, no claudication, no diaphoresis, no dyspnea, no dyspnea on exertion, no edema, no irregular heart rhythm, no lightheadedness , no orthopnea, no palpitations, no paroxysmal nocturnal dyspnea - Respiratory Respiratory: no cough, no dyspnea, no chest congestion - Gastrointestinal Gastrointestinal: diarrhea, heartburn, no abdominal pain, no belching, no coffee ground emesis, no melena, no nausea, no vomiting - Genitourinary Genitourinary: no urinary hesitancy, no urinary incontinence, no urinary urgency - Musculoskeletal Musculoskeletal ROS IM: no joint swelling, no muscle weakness - Integumentary Integumentary IM: no erythema, no rash, no jaundice - Neurological Neurological ROS: no abnormal movements, no headache(s), no numbness, no paresthesias, no weakness, no other visual disturbances - Constitutional Vitals: Temp Pulse Resp BP Pulse Ox 98.4 F 69 15 118/63 94 11/08/17 21:09 11/09/17 03:56 11/09/17 03:56 11/09/17 03:56 11/09/17 03:56 General appearance: Present: A&O X 3, pleasant, no acute distress, answers questions appropriately - Head Head exam: Present: atraumatic, normocephalic - Eye Eye exam: Present: conjuntiva pink, sclera anicteric - ENT ENT exam: Present: mucous membranes dry - Neck Neck exam general surgery: Present: supple, trachea midline. Absent: lymphadenopathy - Respiratory Respiratory exam: Present: CTAB. Absent: accessory muscle use, rales, rhonchi, wheezes - Cardiovascular Cardiovascular exam: Present: RRR, +S1, +S2 - GI/Abdominal GI/Abdominal exam: Present: normal bowel sounds, soft, no peritoneal signs. Absent: distended, firm, guarding, tenderness - Extremities Exam Extremities exam: Present: warm, radial pulses palpable and symmetrical. Absent : calf tenderness, cyanotic, pedal edema - Neurological Exam Neurological exam: Present: CN II-XII intact, oriented X3, no focal deficits. Absent: pronater drift, facial droop, speech deficit - Skin Skin exam: Present: dry, intact Internal Med - H&P Results - Labs CBC & Chem 7: 11/08/17 21:34 11/08/17 21:34 - Assessment and plan (1) Chest pain Current Visit: Yes Status: Acute Assessment and plan: 72-year-old female with known CAD and DM2 with recent negative stress testing in April 2017. -Due to her high risk known CAD and diabetes in conjunction with recent negative stress, we will consult cardiology due to concerns for triple-vessel disease and false negative on stress testing due to diabetes. -Primary/day team to call cardiology in the morning. -q6 troponins -ECG in the AM -cardiac monitoring -morning labs, vitals, ASA Qualifiers: Chest pain type: unspecified Qualified Code(s): R07.9 - Chest pain, unspecified (2) CAD (coronary artery disease) Current Visit: No Status: Chronic Assessment and plan: Patient s/p 4 stents from [facility] approximately 4 years ago. -Most recent echo with LVEF 65% 05/21/2017 with mild LV diastolic dysfunction. -Will continue home medications- BB, statin, and ASA -FU cardiology consultation Qualifiers: Coronary Disease-Associated Artery/Lesion type: [place] artery [place] vs. transplanted heart: [place] heart Associated angina: angina presence unspecified Qualified Code(s): I25.10 - Atherosclerotic heart disease of [place] coronary artery without angina pectoris (3) HTN (hypertension) Current Visit: No Status: Chronic Assessment and plan: resume home medications Qualifiers: Hypertension type: essential hypertension Qualified Code(s): I10 - Essential (primary) hypertension (4) Diabetes mellitus type 2 in obese Current Visit: No Status: Chronic Assessment and plan: Levemir 20 units BID (converted from home dose of lantus 40 units HS) and low dose ss insulin coverage. -diabetic diet (5) CKD (chronic kidney disease) stage 3, GFR 30-59 ml/min Current Visit: No Status: Acute Assessment and plan: avoid nephrotoxic medications (6) DVT prophylaxis Current Visit: Yes Status: Acute Assessment and plan: Heparin subcutaneous twice a day. - Time Spent With Patient Total time spent is greater than 50% in coordination of care (as documented) at patient's floor/unit and/or counseling patient: <Prakash Bautista - Last Filed: 11/09/17 06:17> Date of Encounter: 11/09/17 Time of Encounter: 06:08 - Cardiovascular Cardiovascular ROS IM: chest pain - Respiratory Respiratory: no cough, no hemoptysis, no chest congestion, no excessive phlegm production, no change in phlegm color - Gastrointestinal Gastrointestinal: heartburn, no hematemesis, no hematochezia, no melena - Genitourinary Genitourinary: no dysuria, no flank pain, no hematuria - Musculoskeletal Musculoskeletal ROS IM: no arthralgias, no back pain - Integumentary Integumentary IM: no jaundice - Psychiatric Psychiatric: no anxiety, no depression - Endocrine Endocrine IM: no polydipsia, no polyuria - Hematologic/Lymphatic Hematologic/Lymphatic: no easy bruising, no lymphadenopathy - Allergic/Immunologic Allergic/Immunologic: GI upset with certain foods, no wheezing - Constitutional Vitals: Temp Pulse Resp BP Pulse Ox 97.9 F 76 18 153/81 94 11/09/17 04:43 11/09/17 04:43 11/09/17 04:43 11/09/17 04:43 11/09/17 04:43 General appearance: Present: cooperative, A&O X 3, pleasant, no acute distress - Head Head exam: Present: normal inspection - Eye Eye exam: Present: PERRL. Absent: scleral icterus - ENT ENT exam: Present: mucous membranes dry, normal exam - Neck Neck exam general surgery: Present: supple - Respiratory Respiratory exam: Present: CTAB. Absent: chest wall tenderness, rales, rhonchi , wheezes - Cardiovascular Cardiovascular exam: Present: RRR, +S1, +S2 - GI/Abdominal GI/Abdominal exam: Present: soft. Absent: hepatomegaly, mass, splenomegaly, tenderness - Extremities Exam Extremities exam: Present: normal capillary refill, normal inspection, warm, radial pulses palpable and symmetrical. Absent: calf tenderness, cyanotic - Back Exam Back exam: Absent: CVA tenderness (L), CVA tenderness (R) - Neurological Exam Neurological exam: Present: no focal deficits Internal Med - H&P Results - Labs CBC & Chem 7: 11/08/17 21:34 11/08/17 21:34 - EKG Data -: EKG Interpreted by Myself - EKG Data Prior EKG available for review: no EKG comments: 11/09/17 06:10 Sinus rhythm; no acute ST-T changes - Diagnostic Studies Chest x-ray Status: image reviewed by me (negative) - Attending Attestation I discussed the patient [place], PMH, ROS, lab data, and exam findings with Dr. Jeffery. I then saw and examined patient independently as well. Patient is resting in bed and appears comfortable. She denies any chest pain presently. She describes her chest pain as a "misery" and not actual pain. This is the same type pain she has when she had her TN. She did have a negative stress test and ECHO this past fall. Nonetheless, I still am concerned that will likely need [facility] +/- intervention. Therefore, we will contact Cardiology and ask them to see patient in consultation. She is diabetic and known to have CAD. She also had EGD recently which showed gastritis and a gastric polyp -- no ulcer. The pain/misery she has had is different than the pain pain shes had in her stomach. Other than my comments above and noted exam findings, I agree with Dr. Higginbotham's assessment and plan. - Assessment and plan (1) HTN (hypertension) Current Visit: No Status: Chronic Qualifiers: Hypertension type: essential hypertension Qualified Code(s): I10 - Essential (primary) hypertension (2) CAD (coronary artery disease) Current Visit: No Status: Chronic Qualifiers: Coronary Disease-Associated Artery/Lesion type: [place] artery [place] vs. transplanted heart: [place] heart Associated angina: angina presence unspecified Qualified Code(s): I25.10 - Atherosclerotic heart disease of [place] coronary artery without angina pectoris (3) Diabetes mellitus type 2 in obese Current Visit: No Status: Chronic (4) Chest pain Current Visit: Yes Status: Acute (5) CKD (chronic kidney disease) stage 3, GFR 30-59 ml/min Current Visit: No Status: Acute (6) DVT prophylaxis Current Visit: Yes Status: Acute - Time Spent With Patient Total time spent is greater than 50% in coordination of care (as documented) at patient's floor/unit and/or counseling patient:
[2017-11-09] MEDS ORDERED: Naloxone 0.4 MG/ML INJ IVP PRN (05:08)
[2017-11-09] MEDS ORDERED: *HR* Dextrose 50 % in Water (Syg) 50 ML SYRINGE IVP PRN (05:15)
[2017-11-09] MEDS ORDERED: D5% in Water 1,000 ML IVC PRN (05:15)
[2017-11-09] MEDS ORDERED: Dextrose Gel 15 GM/37.5 ML TUBE PO PRN ×2 (05:15)
[2017-11-09] MEDS: *HR* Heparin 5,000 UNIT/ML VIAL SQ SCH ×2 (06:23→18:09)
[2017-11-09] MEDS ORDERED: NON-FORMULARY MEDICATION 1 EACH EACH (Metformin Hcl [Glucophage Xr] 750 MG) PO SCH (09:00)
[2017-11-09] MEDS ORDERED: Metoprolol XL (24 HR) Succ 25 MG TAB.ER.24H PO SCH (09:00)
--- NOTE | 2017-11-09 09:05 | Electrocardiograph Report ---
[address] [place], [place] [address] Test Date: 2017-11-08 Pat Name: Lizbeth Grimm Department: 104 Room: [facility] Gender: F Agency Appointments Supervisor: LRElodia : 1945 Requested By: Remi Infante Order Number: [id number] Reading MD: Jany Moran Measurements Intervals [place] Rate: 97 P: 48 NE: 187 QRS: 0 QRSD: 80 T: 72 QT: 348 QTc: 403 Interpretive Statements SINUS RHYTHM NONSPECIFIC ST-WAVE ABNORMALITY Electronically Signed On 11-09-2017 9:03:20 EDT by Jany Moran
[2017-11-09] MEDS: metroNIDAZOLE 500 MG TABLET PO SCH ×2 (10:35→21:37)
[2017-11-09] MEDS: Aspirin Enteric Coated 81 MG Tablet PO SCH (10:35)
[2017-11-09] MEDS: hydroCHLOROthiazide 25 MG TABLET PO SCH (10:35)
[2017-11-09] MEDS: Multivit/Ca/Min/Fe/FA 1 TAB TABLET PO SCH (10:36)
[2017-11-09] MEDS: Cholecalciferol (D-3) 1,000 UNIT TABLET PO SCH (10:36)
[2017-11-09] MEDS: Insulin LISPRO 300 UNITS/3 ML VIAL SQ SCH ×3 (10:38→16:34)
--- NOTE | 2017-11-09 10:59 | Cardiology Consult Note ---
<Kady Keller Sotero - Last Filed: 11/09/17 11:21> Date of Encounter: 11/09/17 Time of Encounter: 10:30 Assessment and Plan (1) Chest pain Current Visit: Yes Status: Acute Atypical chest pain--likely musculoskeletal in etiology as pain is reproducible upon exam. Troponin negative x3. No ST/T wave abnormalities noted per ECG. Patient reports pain is different from prior ND presentation. Recent negative nuclear stress test 2016, TTE also demonstrated normal LVEF with normal wall motion. Blood pressure severely elevated upon presentation, 198/100. Recommend improved BP control as outpatient. Given hx of CAD, will add imdur. Has outpatient f/u with Dr. Burnette early next month. Qualifiers: Chest pain type: precordial pain Qualified Code(s): R07.2 - Precordial pain (2) CKD (chronic kidney disease) stage 3, GFR 30-59 ml/min Current Visit: No Status: Acute Hx of CKD-3. SCr stable today. (3) Hypertensive urgency Current Visit: Yes Status: Acute Recommend improved outpatient control of BP. Encouraged BP/HR log at home and bring to next appt. Will add imdur, defer further recommendations to primary service. (4) CAD (coronary artery disease) Current Visit: No Status: Chronic Hx of CAD s/p PCI in 2013. Plan as above--continue asa, statin, plavix, BB. Qualifiers: Coronary Disease-Associated Artery/Lesion type: [place] artery [place] vs. transplanted heart: [place] heart Associated angina: angina presence unspecified Qualified Code(s): I25.10 - Atherosclerotic heart disease of [place] coronary artery without angina pectoris Discussion w patient/family: The assessment and plan as outlined above was discussed with the patient and/or family members who expressed understanding and agreement. All questions were answered. Thank you for involving us in the care of your patient. Please call with any questions. The patient will be discussed and reviewed with Dr. Moran; changes to be made accordingly. History of Present Illness Consult date: 11/09/17 Requesting physician: Latricia Jeffery Consult reason: Chest pain Chief complaint: Chest pain History of present illness: Ms. Grimm is a 72 year old female with PMHx significant for DMII, HLD, HTN, CAD s/p PCI, and CKD who presented to the ED with complaints of left-sided chest "misery." Reports pain started yesterday afternoon while she was mopping; pain has been nearly constant since it started yesterday evening. Pain did not radiate nor describes any associated symptoms. Nothing seems to worsen pain. Reports NTG tab did improve pain temporarily. Reports chest discomfort is different than prior ND presentation in 2013. Has recently underwent EGD/ biopsies with Dr. Pacheco for GI related issues. Troponin has been negative x3. No acute ST/T wave changes noted per ECG. Blood pressure was noted to be severely elevated upon admission. Prior CV testing: TTE 05/21/17: LVEF 60-65%, mild LVDD, normal wall motion Nuclear stress test 05/21/17: gated EF >70%, negative for ischemia or infarct [facility] 06/2014: s/p successful PTCA/LEE to RCA and LCx; otherwise non- obstructive CAD Past Med Surg Social Fam HX - Past Medical History Attestation: Yes The following information was validated with the patient. Source: patient Medical history: arthritis, coronary artery disease, diabetes, GERD, hyperlipidemia, hypertension, myocardial infarction Psychiatric history: no psych history - Past Surgical History Surgical History: angioplasty/stent, breast surgery - Social History Smoking Status: Never smoker Smokeless Tobacco Status: No Alcohol use: none Drug use: none - Family History Mother Living Status: Hx Family Cardiac Disorders: Yes (CHF, HTN) Hx Family Respiratory Disorders: No Hx Family Cancer: Yes (Colon Cancer) Hx Family GI Disorders: No Hx Family Endocrine Disorder: Yes (DM) Hx Family Neuromuscular Disorders: No Hx Family Neurologic Disorders: No Hx Family HEENT Disorders: No Hx Family Autoimmune Disorders: No Father Living Status: Hx Family Cardiac Disorders: No Hx Family Respiratory Disorders: No Hx Family Cancer: No Hx Family GI Disorders: No Hx Family Endocrine Disorder: No Hx Family Neuromuscular Disorders: Yes Hx Family Neurologic Disorders: No Hx Family HEENT Disorders: No Hx Family Autoimmune Disorders: No Medications and Allergies Aspirin [Lo-Dose Aspirin EC] 81 mg PO DAILY 02/05/16 [History] Atorvastatin [Lipitor] 40 mg PO HS 02/05/16 [History] Clopidogrel [Plavix] 75 mg PO DAILY 02/05/16 [History] Insulin Glargine [Lantus] 40 unit SQ HS 02/05/16 [History] Levothyroxine [Synthroid] 50 mcg PO 0630 02/05/16 [History] Metoprolol XL (24 HR) Succ [Toprol Xl] 25 mg PO DAILY 02/05/16 [History] hydroCHLOROthiazide [Hydrochlorothiazide] 25 mg PO DAILY 02/05/16 [History] Insulin NPH Hum/Reg Insulin Hm [Novolin 70-30 100 Unit/ml Vial] 15 unit SQ BID 09/23/16 [History] Metformin HCl [Glucophage Xr] 750 mg PO BID 09/23/16 [History] Potassium Chloride [Klor-Con 10] 20 meq PO DAILY 05/19/17 [History] Calcium Carbonate [Calcium] 500 mg PO DAILY 10/26/17 [History] Cholecalciferol (D-3) [Vitamin D] 1,000 unit PO DAILY 10/26/17 [History] Multivitamin [One Daily Multivitamin] 1 tab PO DAILY 10/26/17 [History] Clarithromycin [Clarithromycin] 250 mg PO BID 11/08/17 [History] metroNIDAZOLE [Flagyl] 500 mg PO BID 11/08/17 [History] 3 Allergy/AdvReac Type Severity Reaction Status Date / Time Amoxicillin [From Amoxil] Allergy Swelling Verified 11/08/17 22:38 of Lip/Tongue/Throat Penicillins Allergy Swelling Verified 11/08/17 22:38 of Lip/Tongue/Throat All Systems Review: The remainder of the systems were reviewed and are negative - Cardiovascular Cardiovascular: as per HPI Physical Examination General: Conversant, No Apparent Distress HEENT: Atraumatic, Normocephaly, Mucus Membranes Moist Cardiac: Reg Rate and Rhythm, Normal S1 and S2 Lungs: Normal Breath Sounds Neuro: Alert and responsive Abdomen: Soft Musculoskeletal: Other (reproducible chest pain) Extremities: No Edema, Normal Pulses Results 11/08/17 21:34 11/08/17 21:34 Lab Results 11/09/17 05:41 Troponin I < 0.03 Active Medications Aspirin (Aspirin Ec) 81 mg PO DAILY [facility] Stop: 05/11/18 09:01 Last Admin: 11/09/17 10:35 Dose: 81 mg Atorvastatin Calcium (Lipitor) 40 mg PO HS [facility] Stop: 05/11/18 21:01 Calcium Carbonate (Tums) 500 mg PO DAILY [facility] Stop: 05/11/18 09:01 Last Admin: 11/09/17 10:36 Dose: 500 mg Clarithromycin (Biaxin) 250 mg PO BID [facility] Stop: 05/11/18 09:01 Last Admin: 11/09/17 10:36 Dose: 250 mg Clopidogrel Bisulfate (Plavix) 75 mg PO DAILY [facility] Stop: 05/11/18 09:01 Last Admin: 11/09/17 10:35 Dose: 75 mg Dextrose/Water (Dextrose 50% (Syg)) 25 ml IVP AD PRN PRN Reason: Hypoglycemia Stop: 05/11/18 05:16 Glucagon (Glucagen) 1 mg IM ONCE PRN PRN Reason: Hypoglycemia Stop: 05/11/18 05:16 Glucose (Gluctose) 15 gm PO ONCE PRN PRN Reason: Hypoglycemia Stop: 05/11/18 05:16 Glucose (Gluctose) 30 gm PO ONCE PRN PRN Reason: Hypoglycemia Stop: 05/11/18 05:16 Heparin Sodium (Porcine) (Heparin) 5,000 unit SQ Q12HCO [facility] Stop: 05/11/18 06:01 Last Admin: 11/09/17 06:23 Dose: 5,000 unit Hydrochlorothiazide (Hydrochlorothiazide) 25 mg PO DAILY [facility] PRN Reason: Protocol Stop: 05/11/18 09:01 Last Admin: 11/09/17 10:35 Dose: 25 mg Dextrose (Dextrose 5%) 1,000 mls @ 100 mls/hr IVC .Q10H PRN PRN Reason: HYPOGLYCEMIA Stop: 05/11/18 05:16 Insulin Detemir (Levemir) 20 unit 0.25 unit/kg (20 unit) SQ BID [facility] Stop: 05/11/18 09:01 Insulin Human Lispro (Humalog) 0 units SQ TIDAC [facility] PRN Reason: Protocol Stop: 05/11/18 07:31 Last Admin: 11/09/17 10:38 Dose: Not Given Levothyroxine Sodium (Synthroid) 50 mcg PO 0630 [facility] Stop: 05/11/18 06:31 Last Admin: 11/09/17 06:23 Dose: 50 mcg Metoprolol Succinate (Toprol Xl) 25 mg PO DAILY [facility] Stop: 05/11/18 09:01 Last Admin: 11/09/17 10:36 Dose: 25 mg Metronidazole (Flagyl) 500 mg PO BID [facility] PRN Reason: Protocol Stop: 05/11/18 09:01 Last Admin: 11/09/17 10:35 Dose: 500 mg Multivitamins/Calcium (Thera M Plus) 1 tab PO DAILY [facility] Stop: 05/11/18 09:01 Last Admin: 11/09/17 10:36 Dose: 1 tab Naloxone HCl (Narcan) 0.4 mg IVP Q2MIN PRN PRN Reason: SEE COMMENTS Stop: 05/11/18 05:09 Nitroglycerin (Nitroglycerin) 0.4 mg SL Q5MIN PRN PRN Reason: Chest Pain Stop: 05/11/18 11:01 Potassium Chloride (Potassium Chloride) 20 meq PO DAILY [facility] Stop: 05/11/18 09:01 Last Admin: 11/09/17 10:35 Dose: 20 meq Vitamin D (Vitamin D) 1,000 unit PO DAILY [facility] Stop: 05/11/18 09:01 Last Admin: 11/09/17 10:36 Dose: 1,000 unit - Imaging and Cardiology Stress Test: report reviewed Echo: report reviewed Cardiac cath: report reviewed - EKG Interpretation EKG results cardiology: personally reviewed Consult Discharge Plan - Plan Referrals: Belinda Bey MD [Primary Care Provider] - <DaxaandreaJany - Last Filed: 11/09/17 15:02> Date of Encounter: 11/09/17 - Attending Attestation I examined this patient and my medical decision-making was reviewed with the WHITEPRINTING MACHINE OPERATOR. I agree with the documented findings, disposition and treatment plan as described. Ms. Grimm presents with chest discomfort. Workup has been negative (troponin x3 negative, ECG unremarkable) except for marked elevation of blood pressures. Recent stress test was negative for ischemia or infarct. Patient presently chest pain free and feeling back to baseline. Recommend better control of blood pressure - will defer to primary team. Continue antiplatelet therapy, statin, BB. Will sign off. Please call with questions. Assessment and Plan Discussion w patient/family: The assessment and plan as outlined above was discussed with the patient and/or family members who expressed understanding and agreement. All questions were answered. Thank you for involving us in the care of your patient. Please call with any questions. History of Present Illness History of present illness: Ms. Grimm is a 72 year old female All Systems Review: The remainder of the systems were reviewed and are negative Physical Examination Vital Signs, Last 4 Hours Temp Pulse Resp BP Pulse Ox 11/09/17 11:18 97.8 F 84 16 194/88 94 Results 11/08/17 21:34 11/08/17 21:34 Lab Results 11/09/17 11/09/17 05:41 12:22 Troponin I < 0.03 < 0.03
[2017-11-09] MEDS ORDERED: Nitroglycerin 0.4 MG TAB.SUBL SL PRN (11:00)
[2017-11-09] MEDS: Insulin DETEMIR 100 UNIT/ML X5UNITS SQ SCH ×2 (12:59→22:14)
[2017-11-09] MEDS: Isosorbide MONOnitrate (24 HR) 30 MG TAB.ER.24H PO SCH (13:02)
--- NOTE | 2017-11-09 14:56 | Event Note ---
Date of Encounter: 11/09/17 Time of Encounter: 14:55 Patient is feeling better at this time. Denies any headache. Chest pain is improved. No vision changes. No focal weakness. Blood pressure remains elevated. We will increase metoprolol dosage to 50 mg daily. Continue to monitor blood pressure. Follow cardiology recommendations.
[2017-11-10 04:58] LABS: BUN/Creatinine Ratio 22 (6-26); Blood Urea Nitrogen 23 mg/dL (8-23); Calcium 9.4 mg/dL (8.6-10.3); Carbon Dioxide 29 mEq/L (23-29); Chloride 108 mEq/L (98-107); Chol/HDL Ratio 3.5 (0-4.9); Cholesterol 136 mg/dL (< 200); Glucose 84 mg/dL (70-105); HDL Cholesterol 39 mg/dL (40-59); LDL Cholesterol,Calculated 67 mg/dL (0-99); Magnesium 1.6 mg/dL (1.6-2.6); Osmolality,Calculated 297 (280-300); Potassium 3.4 mEq/L (3.5-5.1); Sodium 142 mEq/L (136-145); Triglycerides 149 mg/dL (< 150); eGFR For African Americans > 60 (> 60); eGFR For Non-African Americans 51 (> 60)
[2017-11-10] MEDS: *HR* Heparin 5,000 UNIT/ML VIAL SQ SCH (06:21)
[2017-11-10] MEDS: Insulin LISPRO 300 UNITS/3 ML VIAL SQ SCH (08:54)
[2017-11-10] MEDS ORDERED: Metoprolol XL (24 HR) Succ 25 MG TAB.ER.24H PO SCH (09:00)
[2017-11-10] MEDS: metroNIDAZOLE 500 MG TABLET PO SCH (09:15)
[2017-11-10] MEDS: Aspirin Enteric Coated 81 MG Tablet PO SCH (09:15)
[2017-11-10] MEDS: Cholecalciferol (D-3) 1,000 UNIT TABLET PO SCH (09:18)
[2017-11-10] MEDS: hydroCHLOROthiazide 25 MG TABLET PO SCH (09:18)
[2017-11-10] MEDS: Multivit/Ca/Min/Fe/FA 1 TAB TABLET PO SCH (09:18)
[2017-11-10] MEDS: Isosorbide MONOnitrate (24 HR) 30 MG TAB.ER.24H PO SCH (09:18)
--- NOTE | 2017-11-10 10:48 | Discharge Summary ---
- NOTES TO OUTPATIENT PROVIDER Notes to Outpatient Provider: Patient hospitalized here for chest pain. Evaluated by cardiology. Chest pain likely related to control hypertension. Improved right now. Cardiology does not recommend any further testing inpatient. She can follow up outpatient for further evaluation. Blood pressure better controlled now. Metoprolol dosage increased. Orders not resulted at time of discharge: Pending orders 11/09/17 06:00 ECG 12 lead ECG [ECG] AM 0600 Date of Encounter: 11/10/17 Time of Encounter: 08:30 - Discharge Diagnosis (1) Chest pain Priority: Primary Status: Acute Qualifiers: Chest pain type: precordial pain Qualified Code(s): R07.2 - Precordial pain (2) HTN (hypertension) Priority: Secondary Status: Chronic Qualifiers: Hypertension type: essential hypertension Qualified Code(s): I10 - Essential (primary) hypertension (3) CAD (coronary artery disease) Priority: Secondary Status: Chronic Qualifiers: Coronary Disease-Associated Artery/Lesion type: ute artery [place] vs. transplanted heart: ute heart Associated angina: angina presence unspecified Qualified Code(s): I25.10 - Atherosclerotic heart disease of ute coronary artery without angina pectoris (4) Diabetes mellitus type 2 in obese Priority: Secondary Status: Chronic (5) CKD (chronic kidney disease) stage 3, GFR 30-59 ml/min Priority: Secondary Status: Acute (6) DVT prophylaxis Priority: Secondary Status: Acute Hospital course: Ms. Grimm is a 72 year old female patient with history of coronary artery disease, diabetes, hypertension, hyperlipidemia and hypothyroidism who was hospitalized here with chest pain. She was evaluated by cardiology and her troponins were trended. She did have elevated blood pressure when she came in and this was believed to be causing her chest pain. Her troponins were negative. Cardiology did not recommend any further evaluation at this time. She was placed on Imdur and her metoprolol dosage was increased. She had blood pressure has improved with this treatment. She is no longer having chest pain at this time. She is clinically stable to be discharged home. She will follow up with her primary care provider and cardiology for further management. Discharge discussed with: patient, family, nurse - Time Spent with Patient Total time spent providing and/or coordinating discharge services: Less than 30 minutes (25 min) - Discharge Medications Prescriptions: Isosorbide MONOnitrate (24 HR) [Imdur] 30 mg PO DAILY #30 tab.er.24h Metoprolol XL (24 HR) Succ [Toprol Xl] 50 mg PO DAILY #30 tab.er.24h Home Medications: Aspirin [Lo-Dose Aspirin EC] 81 mg PO DAILY 02/05/16 [History] Atorvastatin [Lipitor] 40 mg PO HS 02/05/16 [History] Clopidogrel [Plavix] 75 mg PO DAILY 02/05/16 [History] Insulin Glargine [Lantus] 40 unit SQ HS 02/05/16 [History] Levothyroxine [Synthroid] 50 mcg PO 0630 02/05/16 [History] hydroCHLOROthiazide [Hydrochlorothiazide] 25 mg PO DAILY 02/05/16 [History] Insulin NPH Hum/Reg Insulin Hm [Novolin 70-30 100 Unit/ml Vial] 15 unit SQ BID 09/23/16 [History] Metformin HCl [Glucophage Xr] 750 mg PO BID 09/23/16 [History] Potassium Chloride [Klor-Con 10] 20 meq PO DAILY 05/19/17 [History] Calcium Carbonate [Calcium] 500 mg PO DAILY 10/26/17 [History] Cholecalciferol (D-3) [Vitamin D] 1,000 unit PO DAILY 10/26/17 [History] Multivitamin [One Daily Multivitamin] 1 tab PO DAILY 10/26/17 [History] Clarithromycin 250 mg PO BID 11/08/17 [History] metroNIDAZOLE [Flagyl] 500 mg PO BID 11/08/17 [History] Isosorbide MONOnitrate (24 HR) [Imdur] 30 mg PO DAILY #30 tab.er.24h 11/10/17 [ Rx] Metoprolol XL (24 HR) Succ [Toprol Xl] 50 mg PO DAILY #30 tab.er.24h 11/10/17 [ Rx] Allergies/Adverse Reactions: 3 Allergy/AdvReac Type Severity Reaction Status Date / Time Amoxicillin [From Amoxil] Allergy Swelling Verified 11/08/17 22:38 of Lip/Tongue/Throat Penicillins Allergy Swelling Verified 11/08/17 22:38 of Lip/Tongue/Throat Date of admission: 11/08/17 23:01 Primary care physician: Belinda Bey Consults: 11/09/17 05:11 Consult to Cardiology [CONS] Routine Comment: Consulting Provider: Cardiology [facility] Reason for Consult: chest pain, known CAD and Diabetes high risk, recent stress test negative Call Completed: No Discharging clinician: Sophie Mccormick Anticipated date of discharge: 11/10/17 - Constitutional Vitals: Temp Pulse Resp BP Pulse Ox 98.1 F 77 18 135/70 95 11/10/17 06:51 11/10/17 06:51 11/10/17 06:51 11/10/17 06:51 11/10/17 06:51 General appearance: Present: cooperative, A&O X 3, pleasant, no acute distress - Respiratory Respiratory exam: Present: CTAB. Absent: accessory muscle use, rales, rhonchi, wheezes - Cardiovascular Cardiovascular exam: Present: RRR, +S1, +S2. Absent: diastolic murmur, gallop, rubs, systolic murmur - GI/Abdominal GI/Abdominal exam: Present: normal bowel sounds, soft, no peritoneal signs. Absent: distended, tenderness - Extremities Exam Extremities exam: Present: warm, radial pulses palpable and symmetrical. Absent : calf tenderness, cyanotic, pedal edema - Neurological Exam Neurological exam: Present: CN II-XII intact, oriented X3, no focal deficits. Absent: facial droop, speech deficit - Skin Skin exam: Present: dry, intact - Patient Status Disposition: Home, Self-Care Condition: Good Functional capacity at discharge: independent ambulation Overall status at discharge: patient is progressing back to baseline - Discharge Instructions Instructions: Metoprolol (By mouth), Isosorbide Mononitrate (By mouth), Chest Pain (DC), Diabetes Mellitus Type 2 in Adults (DC), Chronic Hypertension (DC) Follow Up With: Belinda Bey MD [Primary Care Provider] - 11/12/17 7:45 am () Additional Instructions: Follow up with cardiology as scheduled - Diet and Activity Activity: increase activity as tolerated Diet: diabetic diet, low fat, low cholesterol, low salt diet
[2017-11-10 11:03] VITALS: BP 143/72
[2017-11-10] MEDS: Insulin DETEMIR 100 UNIT/ML X5UNITS SQ SCH (11:31)
== END 2017-11-10 11:32 | disposition home or self-care (01) ==
LOC: EMEROO 20:56 → 3BNU 20:56 → SUATTDRO 23:01 → 2SOUTHHOLD 11-09 03:54
PROVIDERS: ADMIT Pediatrics; ATTEND Internal Medicine